=== PATIENT | male | born 1995 | race Caucasian/White ===

== ENCOUNTER 2016-03-09 17:08 | Emergency (ER) | payer BC, OTHER ==
[~2016-03-09] VITALS: Ht 188 cm; Wt 79.8 kg
[2016-03-09 17:14] VITALS: TEMP 36.8; Ht 188 cm; Wt 79.8 kg
[2016-03-09] MEDS ORDERED: FAMOTIDINE IV INJ 20 MG in DEXTROSE 5% 100ML 100 ML IV STA (17:42)
[2016-03-09] MEDS ORDERED: ONDANSETRON INJ 2 MG/ML 2 ML VIAL IV STA (17:42)
[2016-03-09] MEDS ORDERED: SODIUM CHLORIDE 0.9% 1000ML 1,000 ML IV STA (17:42)
[2016-03-09] MEDS ORDERED: PANTOprazole INJ 80 MG in DEXTROSE 5% 100ML 100 ML IV SCH (17:45)
[2016-03-09] MEDS ORDERED: ZNTT/150 PO (17:47)
[2016-03-09 17:57] LABS: BASO % 0.3 %; BASO ABS # 0.03 K/uL (0-0.2); COMPLETE YES; EOS % 0.4 %; HEMATOCRIT 45.9 % (42-52); IG% 0.3 %; LYMPH % 16.8 %; LYMPH ABS # 1.65 K/uL (1.2-3.4); MEAN CELL VOLUME 87.8 fL (80-100); MEAN CORPUSCULAR HEMOGLOBIN 31.2 pg (25-34); MEAN CORPUSCULAR HGB CONC 35.5 g/dl (32-36); MEAN PLATELET VOLUME 9.6 fL (7.4-10.4); MONO % 5.7 %; NEUT % 76.5 %; PLATELET COUNT 310 K/uL (130-400); RED BLOOD COUNT 5.23 M/uL (4.7-6.1)
[2016-03-09 18:08] LABS: PARTIAL THROMBOPLASTIN RATIO 0.9; PROTHROMBIN TIME (PATIENT) 11.2 SECONDS (9.0-12.0)
[2016-03-09 18:09] LABS: BUN/CREATININE RATIO 11.4 (10-20); CALCIUM 9.2 mg/dl (8.5-10.1); CREATININE 0.99 mg/dl (0.60-1.40); POTASSIUM 3.7 mmol/L (3.5-5.1)
--- NOTE | 2016-03-09 18:28 | DIAGNOSTIC IMAGING REPORT ---
ABDOMEN 2VIEW W/PA CHEST RTN CLINICAL HISTORY: Generalized abdominal pain COMPARISON STUDY: No previous studies for comparison. FINDINGS: The erect chest reveals no free air. There is no focal pulmonary consolidation. Erect and supine views of the abdomen reveal no abnormally dilated loops of large or small bowel. There are no transition zones indicate bowel obstruction. IMPRESSION: No evidence of bowel obstruction. No evidence of free air. Electronically signed by: Beau Melgar M.D. 03/09/2016 6:26 PM Dictated Date/Time: 03/09/2016 6:26 PM
[2016-03-09] MEDS ORDERED: PANT40TA PO (19:30)
[2016-03-09 19:49] LABS: URINE APPEARANCE TURBID (CLEAR); URINE BILIRUBIN NEG (NEG); URINE COLOR YELLOW; URINE EPITHELIAL CELL AUTO 0-5 /lpf (0-5); URINE NITRITE NEG (NEG); URINE PH 5.5 (4.5-7.5); URINE SPECIFIC GRAVITY 1.024 (1.000-1.030); UROBILINOGEN NEG (NEG)
[2016-03-09 19:51] LABS: MANUAL MICROSCOPIC REQUIRED? NO; REVIEW REQ? NO
[2016-03-09 20:00] VITALS: BP 154/85; PULSE 67; O2SAT 96
--- NOTE | 2016-03-10 00:39 | EMERGENCY ROOM VISIT NOTE ---
History First contact with patient: 17:27 Chief Complaint: VOMITING Stated Complaint: VOMITING,BLEEDING Nursing Triage Summary: Triage Notes: pt vomiting blood this am, [facility] and pt was symptomatic with orthos, states he almost passed out, c/o abd pain History of Present Illness The patient is a 20 year old male who presents to the Emergency Room with complaints of epigastric pain and bright red vomitus this morning. The patient went to [facility] this afternoon for further evaluation, and was referred here for further management. The patient's father transported him to the emergency department. According to the family, the patient started to develop epigastric discomfort mid-November. He was seen by his PCP, Dr. Mckeon, who put him on ranitidine 150 mg twice daily 6 weeks. The patient reported significant reduction of his discomfort. After he ran out of his medication, he then started to redevelop similar pain. When asked about oral intake of GI irritants, the patient admits that he has been drinking on average 5 beers daily for the past 2 weeks during [employer]. The patient drinks a couple cups of coffee a day as well. He denies any significant NSAIDs use. The patient reports that his epigastric discomfort is usually improved after eating. While the patient was at [facility], he became dizzy and had bright red vomitus while they were performing orthostatic testing. The patient reports that he has also had darkening stool as well. His PCP was going to monitor his condition from last November. The patient has not had any prior history of GERD or peptic ulcer disease. At the current time , he rates his discomfort a 3 out of 10. Review of Systems HEENT: Denies visual problems, hearing loss, tinnitus. Denies difficulty swallowing or oral lesions. PULMONARY: Denies cough, shortness of breath, sputum production or hemoptysis. CARDIOVASCULAR: Denies chest pain, palpitations, dyspnea on exertion, orthopnea or peripheral edema. GASTROINTESTINAL: See history of present illness. GENITOURINARY: Denies dysuria, frequency, urgency or nocturia. NEUROLOGIC: Denies history of epilepsy, CVA, TIA or chronic headaches. MUSCULOSKELETAL: Denies history of joint tenderness/swelling. SKIN: Denies rashes or lesions. PSYCHIATRIC: Denies history of depression or mental illness. ENDOCRINE: Denies history of diabetes or thyroid disorders. Past Medical/Surgical History Medical Problems: (1) No significant past medical history Surgical Problems: (1) History of appendectomy (2) History of wisdom tooth extraction Family History FH: cancer FH: diabetes mellitus FH: heart disease Social History Smoking Status: Never Smoker Alcohol Use: occasionally Marital Status: single Occupation Status: [employer] student Current/Historical Medications Scheduled Pantoprazole (Protonix), 40 MG PO BID Ranitidine (Zantac), 150 MG PO DAILY Allergies Coded Allergies: No Known Allergies (Unverified , 03/09/16) Physical Exam Vital Signs Date Time Temp Pulse Resp B/P Pulse Ox O2 Delivery O2 Flow Rate FiO2 03/09/16 20:00 67 18 154/85 96 03/09/16 19:06 72 18 142/81 98 Room Air 03/09/16 17:25 77 18 146/73 97 Room Air 78 137/79 82 135/84 03/09/16 17:14 36.8 74 18 137/80 96 Room Air Physical Exam CONSTITUTIONAL: Healthy and well nourished. Alert and oriented X 3 with positive affect. Patient does not appear in any acute distress. HEENT: Normocephalic, atraumatic. Pupils equal, round and reactive. Ears and nares are clear. Nose clear icterus or conjunctival injection/pallor. NECK: Full active range of motion without discomfort. RESPIRATORY: Clear to auscultation bilaterally with no wheezing, crackles, rhonchi or stridor. CARDIOVASCULAR: Regular rate and rhythm with no murmurs, rubs or gallops. GASTROINTESTINAL: Bowel sounds present in all quadrants. Patient has mild epigastric tenderness to palpation. Negative CVA tenderness. No rigidity, guarding or rebound. MUSCULOSKELETAL: Full range of motion of all joints without discomfort. INTEGUMENTARY: No rash or other significant dermatologic conditions noted. HEMATOLOGIC: No ecchymosis or petechiae noted. NEUROLOGIC: No focal neurologic deficits noted. Medical Decision & Procedures ER Provider Diagnostic Interpretation: My interpretation of an abdomen instructions series with PA chest does not show any evidence for obstructions, free air or pulmonary consolidations. Radiologist report is as follows: ABDOMEN 2VIEW W/PA CHEST RTN CLINICAL HISTORY: Generalized abdominal pain COMPARISON STUDY: No previous studies for comparison. FINDINGS: The erect chest reveals no free air. There is no focal pulmonary consolidation. Erect and supine views of the abdomen reveal no abnormally dilated loops of large or small bowel. There are no transition zones indicate bowel obstruction. IMPRESSION: No evidence of bowel obstruction. No evidence of free air. Laboratory Results 03/09/16 17:35 Red Blood Count 5.23, Mean Corpuscular Volume 87.8, Mean Corpuscular Hemoglobin 31.2, Mean Corpuscular Hemoglobin Concent 35.5, Mean Platelet Volume 9.6, Neutrophils (%) (Auto) 76.5, Lymphocytes (%) (Auto) 16.8, Monocytes (%) (Auto) 5.7, Eosinophils (%) (Auto) 0.4, Basophils (%) (Auto) 0.3, Neutrophils # (Auto) 7.49, Lymphocytes # (Auto) 1.65, Monocytes # (Auto) 0.56, Eosinophils # (Auto) 0.04, Basophils # (Auto) 0.03 03/09/16 17:35 Test 03/09/16 17:35 White Blood Count 9.80 K/uL (4.8-10.8) Red Blood Count 5.23 M/uL (4.7-6.1) Hemoglobin 16.3 g/dL (14.0-18.0) Hematocrit 45.9 % (42-52) Mean Corpuscular Volume 87.8 fL (80-100) Mean Corpuscular Hemoglobin 31.2 pg (25-34) Mean Corpuscular Hemoglobin Concent 35.5 g/dl (32-36) Platelet Count 310 K/uL (130-400) Mean Platelet Volume 9.6 fL (7.4-10.4) Neutrophils (%) (Auto) 76.5 % Lymphocytes (%) (Auto) 16.8 % Monocytes (%) (Auto) 5.7 % Eosinophils (%) (Auto) 0.4 % Basophils (%) (Auto) 0.3 % Neutrophils # (Auto) 7.49 K/uL (1.4-6.5) Lymphocytes # (Auto) 1.65 K/uL (1.2-3.4) Monocytes # (Auto) 0.56 K/uL (0.11-0.59) Eosinophils # (Auto) 0.04 K/uL (0-0.5) Basophils # (Auto) 0.03 K/uL (0-0.2) RDW Standard Deviation 39.6 fL (36.4-46.3) RDW Coefficient of Variation 12.4 % (11.5-14.5) Immature Granulocyte % (Auto) 0.3 % Immature Granulocyte # (Auto) 0.03 K/uL (0.00-0.02) Prothrombin Time 11.2 SECONDS (9.0-12.0) Prothromb Time International Ratio 1.0 (0.9-1.1) Activated Partial Thromboplast Time 24.0 SECONDS (21.0-31.0) Partial Thromboplastin Ratio 0.9 Urine Color YELLOW Urine Appearance TURBID (CLEAR) Urine pH 5.5 (4.5-7.5) Urine Specific [place] 1.024 (1.000-1.030) Urine Protein TRACE (NEG) Urine Glucose (UA) NEG (NEG) Urine Ketones 1+ (NEG) Urine Occult Blood NEG (NEG) Urine Nitrite NEG (NEG) Urine Bilirubin NEG (NEG) Urine Urobilinogen NEG (NEG) Urine Leukocyte Esterase NEG (NEG) Urine WBC (Auto) 0 /hpf (0-5) Urine RBC (Auto) 0-4 /hpf (0-4) Urine Hyaline Casts (Auto) 1-5 /lpf (0-5) Urine Epithelial Cells (Auto) 0-5 /lpf (0-5) Urine Bacteria (Auto) NEG (NEG) Anion Gap 12.0 mmol/L (3-11) Est Creatinine Clear Calc Drug Dose 135.5 ml/min Estimated GFR () 127.4 Estimated GFR (Non- 110.0 BUN/Creatinine Ratio 11.4 (10-20) Calcium Level 9.2 mg/dl (8.5-10.1) Total Bilirubin 0.5 mg/dl (0.2-1) Direct Bilirubin 0.1 mg/dl (0-0.2) Aspartate Amino Transf (AST/SGOT) 30 U/L (15-37) Alanine Aminotransferase (ALT/SGPT) 29 U/L (12-78) Alkaline Phosphatase 90 U/L (45-117) Total Creatine Kinase 296 U/L (39-308) Total Protein 8.1 gm/dl (6.4-8.2) Albumin 4.6 gm/dl (3.4-5.0) Lipase 76 U/L (73-393) The above labs were reviewed and were grossly normal. The patient was unable to provide a stool sample. Medications Administered Medications (Trade) Dose Ordered Sig/Pillo Route Start Time Stop Time Status Last Admin Dose Admin Sodium Chloride (Nss 1000ml) 1,000 ml @ 999 mls/hr Q1H1M STAT IV 03/09/16 17:42 03/09/16 18:42 DC 03/09/16 18:07 999 MLS/HR Ondansetron HCl 4 mg 4 mg NOW STAT IV 03/09/16 17:42 03/09/16 17:48 DC 03/09/16 18:07 4 MG Pantoprazole Sodium 80 mg/ Dextrose 120 ml @ 400 mls/hr NOW IV 03/09/16 17:45 03/09/16 20:18 DC 03/09/16 18:49 400 MLS/HR Famotidine/ Dextrose (Pepcid IV Inj/ D5 100ml) 102 ml @ 200 mls/hr ONE STAT IV 03/09/16 17:42 03/09/16 18:12 DC 03/09/16 18:49 200 MLS/HR Procedure 1. IV hydration: The patient received a liter normal saline bolus 2. IV medications: Protonix 80 mg, Zofran 4 mg and Pepcid 20 mg ED Course Patient history and physical exam were performed. Nurse's notes were reviewed. Vital signs were reviewed and were normal. I also reviewed documentation that the patient brought with him from [facility]. It is noted that the patient had dizziness with orthostatics, and had better than a 30 % increase in heart rate when moved from a supine to sitting position. The patient reports that he could not tolerate standing up. The patient also have positive orthostatic symptoms on nursing evaluation, and prior to my examination of the patient. IV access was established, and labs were drawn. The patient was hydrated with normal saline, and received IV Protonix, Pepcid and Zofran. The patient was unable to provide a stool sample. Given his bloody vomiting and tarry stools, I do suspect that he has an upper GI bleed, likely caused by his most recent alcohol consumption related to fraternity activities. Labs were reviewed and were grossly normal, showing that the patient is hemodynamically stable. The patient did report feeling better with IV hydration, denying any dizziness withdrawal ambulation prior to discharge. The father reports that he already attempted to contact [facility] gastro[facility]ology as they had already close the office for the afternoon. The patient was instructed to call them first thing in the morning for an appointment. He was instructed to return to the emergency department for any progressively worsening bleeding, weakness, chest pain, palpitations or other concerning symptoms. The patient was instructed to refrain from further alcohol, NSAIDs and caffeine use. The patient was provided a prescription for Protonix. The patient and family were happy with plan of care, and voiced understanding of all discharge instructions. Medical Decision As indicated in the previous section, I suspect the patient has an acute gastric ulcer secondary to daily moderate alcohol consumption over the past 2 weeks, related to fraternity activities. At this point, the patient is hemodynamically stable. I do not feel that a stat gastroenterology consultation , observation or admission status is warranted at this point. Impression Primary Impression: Alcoholic gastritis with bleeding Departure Information Prescriptions Pantoprazole (Protonix) 40 Mg Tab 40 MG PO BID, #30 TAB Prov: Riki Santillan PA 03/09/16 Referrals Maximino Otero M.D. (PCP) Patient Instructions My [facility] Health Problem Qualifiers Primary Impression: Alcoholic gastritis with bleeding Chronicity: acute Qualified Codes: K29.21 - Alcoholic gastritis with bleeding
[2016-03-13] MEDS ORDERED: PANT40TA PO (09:02)
== END 2016-03-09 20:02 | disposition home or self-care (01) ==
LOC: C.EDB 17:10 → C.EDC 20:02
DX: K29.21 Alcoholic gastritis with bleeding (principal); Z98.890 Other specified postprocedural states; Z79.899 Other long term (current) drug therapy; Z80.9 Family history of malignant neoplasm, unspecified; Z83.3 Family history of diabetes mellitus; Z82.49 Family history of ischemic heart disease and other diseases of the circulatory system

== ENCOUNTER → 2016-03-17 | Day surgery (SDC) | payer BC, OTHER ==
[2016-03-13 09:02] VITALS: BMI 22.0
[~2016-03-17] VITALS: Ht 188 cm; Wt 79.5 kg
[~2016-03-17] MED LIST: LIDOCAINE HCL 2% 2 ML VIAL (20MG/ML) ONE; PANT40TA PO; PROPOFOL IV EMULSION 10 MG/ML 20 ML VIAL IV ONE; SODIUM CHLORIDE 0.9% 500ML 500 ML IV ONE
[2016-03-17 11:53] VITALS: TEMP 36.3
[2016-03-17 11:54] VITALS: Ht 188 cm; Wt 79.5 kg
--- NOTE | 2016-03-17 12:33 | Endo History and Physical ---
History & Physical Date of Service: Mar 17, 2016. Chief Complaint: ABDOMINAL PAIN, VOMITING Referring Physician: DR STACEY PICKETT History of Present Illness 20 yo CM who presents for EGD secondary to abdominal pain and vomiting. Past Surgical History Hx Cardiac Surgery: No Hx Internal Defibrillator: No Hx Pacemaker: No Hx Abdominal Surgery: Yes (APPY) Hx of Implantable Prosthesis: No Hx Post-Op Nausea and Vomiting: No Hx Cancer Surgery: No Hx Thoracic Surgery: No Hx Orthopedic: No Hx Urinary Tract Surgery: No Family History None Social History Smoking Status: Never Smoker Hx Substance Use: No Hx Alcohol Use: Yes (2X/WEEK) Allergies Coded Allergies: No Known Allergies (Verified , 03/17/16) Current Medications Reported Home Medications Medications Dose Route/Sig Max Daily Dose Days Date Category Protonix (Pantoprazole Sodium) 40 Mg Tab 40 Mg PO BID 03/13/16 Reported Vital Signs Weight (Kilograms): 79.55 Height (Feet): 6 Height (Inches): 2 Date Time Temp Pulse Resp B/P Pulse Ox O2 Delivery O2 Flow Rate FiO2 03/17/16 11:53 36.3 88 16 122/69 96 Room Air Physical Exam General Appearance: WD/WN, no apparent distress Respiratory/Chest: Auscultation: breath sounds normal Cardiovascular: Heart Auscultation: RRR Abdomen: Bowel Sounds: normal Inspection & Palpation: soft, non-distended, no tenderness, guarding & rebound Assessment and Plan Assessment: 20 yo CM who presents for EGD secondary to abdominal pain and vomiting. Plan: Proceed with EGD.
--- NOTE | 2016-03-17 12:53 | GI REPORT ---
Procedure Date: 03/17/2016 12:24 PM Procedure: Upper GI endoscopy Indications: Epigastric abdominal pain, Vomiting Medicines: Monitored Anesthesia Care Complications: No immediate complications. Estimated Blood Loss: Estimated blood loss: none. Procedure: Pre-Anesthesia Assessment: - Prior to the procedure, a History and Physical was performed, and patient medications and allergies were reviewed. The patient's tolerance of previous anesthesia was also reviewed. The risks and benefits of the procedure and the sedation options and risks were discussed with the patient. All questions were answered, and informed consent was obtained. Prior Anticoagulants: The patient has taken no previous anticoagulant or antiplatelet agents. ASA Grade Assessment: II - A patient with mild systemic disease. After reviewing the risks and benefits, the patient was deemed in satisfactory condition to undergo the procedure. After obtaining informed consent, the endoscope was passed under direct vision. Throughout the procedure, the patient's blood pressure, pulse, and oxygen saturations were monitored continuously. The scope was introduced through the mouth, and advanced to the second part of duodenum. The upper GI endoscopy was accomplished without difficulty. The patient tolerated the procedure well. Findings: The esophagus was normal. Localized mild inflammation characterized by erythema was found in the gastric antrum. The examined duodenum was normal. Impression: - Normal esophagus. - Gastritis. - Normal examined duodenum. - No specimens collected. Recommendation: - Resume previous diet. - Continue present medications. - Await pathology results. - Return to GI office as previously scheduled. Clayton Gordon DO 03/17/2016 12:52:52 PM This report has been signed electronically. Note Initiated On: 03/17/2016 12:24 PM I attest to the content of the Intraoperative Record and orders documented therein, exceptions below
--- NOTE | 2016-03-17 12:53 | Discharge Instructions ---
Endoscopy Patient Instructions Date / Procedure(s) Performed Mar 17, 2016. EGD Allergy Information Coded Allergies: No Known Allergies (Verified , 03/17/16) Discharge Date / Findings Mar 17, 2016. Gastritis s/p biopsies Medication Instructions OK to resume all medications today as prescribed Reported Home Medications Medications Dose Route/Sig Max Daily Dose Days Date Category Protonix (Pantoprazole Sodium) 40 Mg Tab 40 Mg PO BID 03/13/16 Reported Provider Instructions Activity Restrictions - No exercising or heavy lifting for 24 hours. - Do not drink alcohol the day of the procedure. - Do not drive a car or operate machinery until the day after the procedure. - Do not make any important decisions or sign important papers in 24 hours after the procedure. Following Day: - Return to full activity which may include returning to work/school. Diet Start your diet with liquids and light foods (jello, soup, juice, toast). Then eat your usual diet if not nauseated. Treatment For Common After Affects For mild abdominal pain, bloating, or excessive gas: - Rest - Eat lightly - Lie on right side Follow-Up Information Follow-up with DR STACEY PICKETT as scheduled Anesthesia Information What You Should Know You have had a procedure that required some medicine to reduce anxiety and discomfort. This treatment is called moderate sedation. After receiving the treatment, you may be sleepy, but you will be able to breathe on your own. The effects of the treatment may last for several hours. Follow these instructions along with Activity/Diet recommendations noted above: * Do NOT do anything where dizziness or clumsiness would be dangerous. * Rest quietly at home today, then you can be up and about tomorrow. * Have a responsible person stay with you the rest of today. * You may have had an I.V. today. If so, you may take the dressing off later today. Recommendations Call your doctor if: * Trouble breathing * Continuous vomiting for more than 24 hours * Temperature above 101 degrees * Severe abdominal pain or bloating * Pain not relieved by pain medicine ordered * There is increased drainage or redness from any incision * A large amount of rectal bleeding greater than 2-3 tablespoons. (If you had a polyp/s removed or have hemorrhoids, a small amount of blood - from the rectum is to be expected.) * You have any unanswered questions or concerns. IN THE EVENT OF A SERIOUS EMERGENCY, GO TO THE NEAREST EMERGENCY ROOM Your discharge instructions were prepared by provider Clayton Gordon. Patient Instructions Signature Page Magno Gregorio Patient (or Guardian) Signature/Date: I have read and understand the instructions given to me by my caregivers. Caregiver/RN/Doctor Signature/Date: The above-named patient and/or guardian has received patient instructions on this date. + Original Patient Signature Page (only) stays with chart. Please make copy for patient.
--- NOTE | 2016-03-17 12:58 | Anesthesiology Progress Note ---
Anesthesia Post Op Note Date & Time Mar 17, 2016 at 12:59 Vital Signs Pain Intensity: 0 Vital Signs Past 12 Hours Date Time Temp Pulse Resp B/P Pulse Ox O2 Delivery O2 Flow Rate FiO2 03/17/16 11:53 36.3 88 16 122/69 96 Room Air Notes Mental Status: alert / awake / arousable, participated in evaluation Pt Amnestic to Procedure: Yes Nausea / Vomiting: adequately controlled Pain: adequately controlled Airway Patency, RR, SpO2: stable & adequate BP & HR: stable & adequate Hydration State: stable & adequate Anesthetic Complications: no major complications apparent
[2016-03-17 13:25] VITALS: BP 105/57; PULSE 89; O2SAT 99
== END | disposition home or self-care (01) ==
LOC: C.GI 11:32
PROVIDERS: ATTEND Internal Medicine
DX: R11.10 Vomiting, unspecified (principal); K29.70 Gastritis, unspecified, without bleeding; Z90.49 Acquired absence of other specified parts of digestive tract

== ENCOUNTER → 2016-11-06 | Outpatient (CLI) | payer BC, OTHER ==
[~2016-11-06] MED LIST changes: -LIDOCAINE HCL 2% 2 ML VIAL (20MG/ML) ONE; -PROPOFOL IV EMULSION 10 MG/ML 20 ML VIAL IV ONE; -SODIUM CHLORIDE 0.9% 500ML 500 ML IV ONE
--- NOTE | 2016-11-06 09:04 | DIAGNOSTIC IMAGING REPORT ---
BILIARY ABDOMEN LIMITED CLINICAL HISTORY: 21 years-old Male presenting with ABD PAIN,LOOSE STOOL,NAUSEA AND VOMITING. TECHNIQUE: Real-time grayscale and limited color Doppler ultrasound imaging of the abdomen limited to the right upper quadrant was performed. COMPARISON: None. FINDINGS: Pancreas: Visualized portions of the pancreatic head and body normal. Liver: Normal echogenicity and echotexture. No sonographic evidence of hepatic mass. Biliary: No intrahepatic biliary ductal dilatation. Common bile duct measures up to 3 mm in diameter. Gallbladder: No evidence of gallstones, gallbladder wall thickening, gallbladder distention, or pericholecystic fluid or inflammatory change. Right kidney: Normal in appearance and size, measuring 10.9 cm. No hydronephrosis. Ascites: None. IMPRESSION: Normal right upper quadrant ultrasound. Electronically signed by: Ernesto Anderson M.D. 11/06/2016 9:03 AM Dictated Date/Time: 11/06/2016 9:01 AM
[2016-11-06 11:16] LABS: BASO % 0.4 %; BASO ABS # 0.02 K/uL (0-0.2); COMPLETE YES; EOS % 1.6 %; HEMATOCRIT 47.3 % (42-52); IG% 0.2 %; LYMPH ABS # 1.51 K/uL (1.2-3.4); MEAN CELL VOLUME 87.6 fL (80-100); MEAN CORPUSCULAR HEMOGLOBIN 29.1 pg (25-34); MEAN CORPUSCULAR HGB CONC 33.2 g/dl (32-36); MEAN PLATELET VOLUME 9.8 fL (7.4-10.4); MONO % 8.5 %; NEUT % 59.3 %; PLATELET COUNT 301 K/uL (130-400); WHITE BLOOD COUNT 5.04 K/uL (4.8-10.8)
[2016-11-06 11:34] LABS: ALT/SGPT 19 U/L (12-78); AMYLASE 41 U/L (25-115); AST/SGOT 15 U/L (15-37); BLOOD UREA NITROGEN 12 mg/dl (7-18); BUN/CREATININE RATIO 12.1 (10-20); CALCIUM 9.2 mg/dl (8.5-10.1); CARBON DIOXIDE 27 mmol/L (21-32); CHLORIDE 109 mmol/L (98-107); GLUCOSE 91 mg/dl (70-99); POTASSIUM 4.1 mmol/L (3.5-5.1); SODIUM 141 mmol/L (136-145)
[2016-11-06 11:43] LABS: ALB/GLOB RATIO 1.6 (0.9-2); ALKALINE PHOSPHATASE 68 U/L (45-117); C-REACTIVE PROTEIN < 0.29 mg/dl (0-0.29); THYROID STIMULATING HORMONE 0.201 uIu/ml (0.300-4.500)
[2016-11-10 17:37] LABS: IGA SERUM 160 mg/dL (81-463); TIS TRANS IGA 1 U/mL (<4)
== END | disposition home or self-care (01) ==
LOC: C.ULTRBC 08:33
PROVIDERS: ATTEND Registered Nurse
DX: R11.2 Nausea with vomiting, unspecified (principal); R19.5 Other fecal abnormalities; R10.13 Epigastric pain; K29.70 Gastritis, unspecified, without bleeding

== ENCOUNTER → 2016-11-27 | Day surgery (SDC) | payer BC, OTHER ==
[2016-11-24 12:05] VITALS: BMI 23.0
[~2016-11-27] VITALS: Ht 188 cm; Wt 81.8 kg
[~2016-11-27] MED LIST changes: +ASCA500 PO; +LIDOCAINE HCL 2% 2 ML VIAL (20MG/ML) ONE; +MIDAZOLAM HCL 1 MG/ML 2ML VIAL ONE; +PROPOFOL IV EMULSION 10 MG/ML 20 ML VIAL IV ONE; +RANI300T2 PO; +SUCR1TAB29 PO
[2016-11-27 10:35] VITALS: Ht 188 cm; Wt 81.8 kg
--- NOTE | 2016-11-27 10:58 | Endo History and Physical ---
History & Physical Date of Service: Nov 27, 2016. Chief Complaint: vomiting blood black stools Referring Physician: dr. holder History of Present Illness 21 yo CM who presents for colonoscopy secondary to melena and hematemesis. Past Surgical History Hx Cardiac Surgery: No Hx Internal Defibrillator: No Hx Pacemaker: No Hx Abdominal Surgery: Yes (APPY) Hx of Implantable Prosthesis: No Hx Post-Op Nausea and Vomiting: No Hx Cancer Surgery: No Hx Thoracic Surgery: No Hx Orthopedic: No Hx Urinary Tract Surgery: No Family History None Social History Smoking Status: Never Smoker Hx Substance Use: No Hx Alcohol Use: Yes (2X/WEEK) Allergies Coded Allergies: No Known Allergies (Verified , 11/27/16) Current Medications Reported Home Medications Medications Dose Route/Sig Max Daily Dose Days Date Category Vitamin C (Ascorbic Acid) 500 Mg Tab 1 Tab PO DAILY PRN 11/24/16 Reported Carafate (Sucralfate) 1 Gm Tab 1 Gm PO TID 11/24/16 Reported Zantac (Ranitidine HCl) 300 Mg Tab 300 Mg PO HS 11/24/16 Reported Protonix (Pantoprazole Sodium) 40 Mg Tab 40 Mg PO QAM 03/13/16 Reported Vital Signs Weight (Kilograms): 81.82 Height (Feet): 6 Height (Inches): 2 Date Time Temp Pulse Resp B/P (MAP) Pulse Ox O2 Delivery O2 Flow Rate FiO2 11/27/16 10:46 36.5 82 20 126/75 (92) 98 Room Air Physical Exam General Appearance: WD/WN, no apparent distress Respiratory/Chest: Auscultation: breath sounds normal Cardiovascular: Heart Auscultation: RRR Abdomen: Bowel Sounds: normal Inspection & Palpation: soft, non-distended, no tenderness, guarding & rebound Assessment and Plan Assessment: 21 yo CM who presents for colonoscopy secondary to melena and hematemesis. Plan: Proceed with colonoscopy.
--- NOTE | 2016-11-27 12:05 | GI REPORT ---
Procedure Date: 11/27/2016 11:12 AM THIS REPORT HAS BEEN AMENDED Addendum Number: 1 Addendum Date: 12/08/2016 10:22:53 PM No specimens were obtained during this exam, and therefore, no pathology is pending. Repeat colonoscopy at age 51 Patient is to followup in our office for persistent symptoms. Procedure: Colonoscopy Indications: Melena Medicines: Monitored Anesthesia Care Complications: No immediate complications. Estimated Blood Loss: Estimated blood loss: none. Procedure: Pre-Anesthesia Assessment: - Prior to the procedure, a History and Physical was performed, and patient medications and allergies were reviewed. The patient's tolerance of previous anesthesia was also reviewed. The risks and benefits of the procedure and the sedation options and risks were discussed with the patient. All questions were answered, and informed consent was obtained. Prior Anticoagulants: The patient has taken no previous anticoagulant or antiplatelet agents. ASA Grade Assessment: II - A patient with mild systemic disease. After reviewing the risks and benefits, the patient was deemed in satisfactory condition to undergo the procedure. After I obtained informed consent, the scope was passed under direct vision. Throughout the procedure, the patient's blood pressure, pulse, and oxygen saturations were monitored continuously. The scope was introduced through the anus and advanced to the terminal ileum. The colonoscopy was performed without difficulty. The patient tolerated the procedure well. The quality of the bowel preparation was good. The terminal ileum, ileocecal valve, appendiceal orifice, and rectum were photographed. Findings: The colon (entire examined portion) appeared normal. Several random biopsies were obtained with cold forceps for histology in the entire colon. The perianal and digital rectal examinations were normal. Impression: - The entire examined colon is normal. - Several random biopsies were obtained in the entire colon. Recommendation: - Resume previous diet. - Continue present medications. - Await pathology results. - Return to GI office as previously scheduled. Clayton Gordon, DO 11/27/2016 12:05:20 PM This report has been signed electronically. Note Initiated On: 11/27/2016 11:12 AM I attest to the content of the Intraoperative Record and orders documented therein, exceptions below Clayton Gordon, DO 12/08/2016 10:23:52 PM This report has been signed electronically.
--- NOTE | 2016-11-27 12:06 | Discharge Instructions ---
Endoscopy Patient Instructions Date / Procedure(s) Performed Nov 27, 2016. Colonoscopy Allergy Information Coded Allergies: No Known Allergies (Verified , 11/27/16) Discharge Date / Findings Nov 27, 2016. Random colon biopsies Medication Instructions OK to resume all medications today as prescribed Reported Home Medications Medications Dose Route/Sig Max Daily Dose Days Date Category Vitamin C (Ascorbic Acid) 500 Mg Tab 1 Tab PO DAILY PRN 11/24/16 Reported Carafate (Sucralfate) 1 Gm Tab 1 Gm PO TID 11/24/16 Reported Zantac (Ranitidine HCl) 300 Mg Tab 300 Mg PO HS 11/24/16 Reported Protonix (Pantoprazole Sodium) 40 Mg Tab 40 Mg PO QAM 03/13/16 Reported Provider Instructions Activity Restrictions - No exercising or heavy lifting for 24 hours. - Do not drink alcohol the day of the procedure. - Do not drive a car or operate machinery until the day after the procedure. - Do not make any important decisions or sign important papers in 24 hours after the procedure. Following Day: - Return to full activity which may include returning to work/school. Diet Start your diet with liquids and light foods (jello, soup, juice, toast). Then eat your usual diet if not nauseated. Treatment For Common After Affects For mild abdominal pain, bloating, or excessive gas: - Rest - Eat lightly - Lie on right side Follow-Up Information Follow-up with dr. holder as scheduled Anesthesia Information What You Should Know You have had a procedure that required some medicine to reduce anxiety and discomfort. This treatment is called moderate sedation. After receiving the treatment, you may be sleepy, but you will be able to breathe on your own. The effects of the treatment may last for several hours. Follow these instructions along with Activity/Diet recommendations noted above: * Do NOT do anything where dizziness or clumsiness would be dangerous. * Rest quietly at home today, then you can be up and about tomorrow. * Have a responsible person stay with you the rest of today. * You may have had an I.V. today. If so, you may take the dressing off later today. Recommendations Call your doctor if: * Trouble breathing * Continuous vomiting for more than 24 hours * Temperature above 101 degrees * Severe abdominal pain or bloating * Pain not relieved by pain medicine ordered * There is increased drainage or redness from any incision * A large amount of rectal bleeding greater than 2-3 tablespoons. (If you had a polyp/s removed or have hemorrhoids, a small amount of blood - from the rectum is to be expected.) * You have any unanswered questions or concerns. IN THE EVENT OF A SERIOUS EMERGENCY, GO TO THE NEAREST EMERGENCY ROOM Your discharge instructions were prepared by provider Clayton Gordon. Patient Instructions Signature Page Magno Gregorio Patient (or Guardian) Signature/Date: I have read and understand the instructions given to me by my caregivers. Caregiver/RN/Doctor Signature/Date: The above-named patient and/or guardian has received patient instructions on this date. + Original Patient Signature Page (only) stays with chart. Please make copy for patient.
--- NOTE | 2016-11-27 12:17 | Anesthesiology Progress Note ---
Anesthesia Post Op Note Date & Time Nov 27, 2016 at 12:16 Vital Signs Pain Intensity: 0 Vital Signs Past 12 Hours Date Time Temp Pulse Resp B/P (MAP) Pulse Ox O2 Delivery O2 Flow Rate FiO2 11/27/16 12:03 77 18 109/62 (78) 99 Room Air 11/27/16 10:46 36.5 82 20 126/75 (92) 98 Room Air Notes Mental Status: alert / awake / arousable, participated in evaluation Pt Amnestic to Procedure: Yes Nausea / Vomiting: adequately controlled Pain: adequately controlled Airway Patency, RR, SpO2: stable & adequate BP & HR: stable & adequate Hydration State: stable & adequate Anesthetic Complications: no major complications apparent
[2016-11-27 12:32] VITALS: BP 120/69; PULSE 58; O2SAT 100
== END | disposition home or self-care (01) ==
LOC: C.GI 10:30
PROVIDERS: ATTEND Internal Medicine
DX: K92.0 Hematemesis (principal); K92.1 Melena; Z90.89 Acquired absence of other organs; K21.9 Gastro-esophageal reflux disease without esophagitis